=== PATIENT | female | born 1980 | race African-American/Black ===

== ENCOUNTER 2019-06-18 16:00 | Emergency (ER) | payer BC, SELFPAY ==
[2019-06-18 16:24] VITALS: BP 142/80; PULSE 101; RESP 18; TEMP 39.2; O2SAT 99
[2019-06-18] MEDS: SODIUM CHLORIDE 0.9% IV 1,000 ML 999 ML IV CONT ×2 (17:03→18:03)
--- NOTE | 2019-06-18 17:16 | ED.GENADULT ---
HPI - General Adult General Chief complaint: Upper Respiratory Infection Stated complaint: dizzy/jimenes/weak Time Seen by Provider: 06/18/19 16:14 Source: patient Mode of arrival: ambulatory Limitations: no limitations History of Present Illness HPI narrative: Patient is a 38-year-old female who presents complaining of generalized body aches, weakness, headache and fever. Patient reports symptoms starting yesterday. Reports increased today. She denies cough, sore throat, congestion, or shortness of breath. She reports taking ibuprofen yesterday with moderate relief. 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 MD complaint: Flulike symptoms Related Data Home Medications Medication Instructions Recorded Confirmed ferrous sulfate 142 mg (45 mg 142 mg PO DAILY 06/02/19 iron) tablet,extended release methimazole 5 mg tablet 5 mg PO DAILY 06/02/19 Allergies Allergy/AdvReac Type Severity Reaction Status Date / Time No Known Allergies Allergy Unverified 06/18/19 16:28 Review of Systems Review of Systems: Narrative: CONSTITUTIONAL: Reports fever, chills, and generalized body aches. EYES: Denies visual changes, redness, or discharge. ENT: Denies rhinorrhea, congestion, sore throat, or otalgia. CARDIOVASCULAR: Denies chest pain, palpitations, or edema. RESPIRATORY: Denies cough or dyspnea. GASTROINTESTINAL: Denies abdominal pain, nausea, vomiting, or diarrhea. GENITOURINARY: Denies dysuria or hematuria. SKIN: Denies rash or itching. MUSCULOSKELETAL: Denies back pain, joint pain, or myalgia. NEUROLOGIC: Reports headache, denies numbness, dizziness. PSYCHIATRIC: Denies anxiety or depression. FOR[facility]LY [facility] Past Medical History Medical History (Updated 06/18/19 @ 17:57 by JUAN DANIEL Salas) Hyperthyroidism Surgical History Surgical History No history of previous surgery Family History Family History Mother Family history of malignant neoplasm of breast in first degree relative, Onset Age: 49 Social History Social History Smoking status: Never smoker Second hand tobacco smoke exposure: No Alcohol intake: never Substance use: never Substance use type: does not use Gender identity (if verbalized by the patient): Female Exam Narrative: Exam Narrative: GENERAL: Ill-appearing but well-nourished and in no acute distress. HEAD: Normocephalic, atraumatic. EYES: EOMI. No redness or drainage. Conjunctiva are normal. ENT: Mucous membranes pink and moist. Nares clear. No rhinorrhea. TMs normal bilaterally. Throat normal. Uvula midline. NECK: AROM. Supple. No lymphadenopathy. CHEST: No respiratory distress. Clear to auscultation. HEART: Regular rate and rhythm. No murmur appreciated. Normal peripheral pulses. GI: Soft, nontender without rebound, or guarding. No distention. Bowel sounds normal in all quadrants. MUSCULOSKELETAL: No bony tenderness. EXTREMITIES: Normal range of motion. No edema. SKIN: Warm, dry, no rash. NEURO: No focal deficits. Alert and oriented x3. Gait steady. PSYCH: Normal affect. No signs of depression or anxiety. Course Reevaluation(s) Reevaluation #1: Patient continues to complain of headache at this time. IV medications and fluids to be continued. Will reassess patient after all medications are finished. Date: 06/18/19 Time: 17:52 Date: 06/18/19 Time: 18:55 Reevaluation #3: Patient reports she is feeling better at this time and is ready for discharge. Vital Signs Vital signs: Vital Signs Temperature 39.2 C H 06/18/19 16:24 Pulse Rate 101 H 06/18/19 16:24 Respiratory Rate 18 06/18/19 16:24 Blood Pressure 142/80 H 06/18/19 16:24 Pulse Oximetry 99 06/18/19 16:24 Temperature 39.2 C H 06/18/19 16:24 Pulse Rate 101 H 06/18/19 16:2
[2019-06-18] MEDS: METOCLOPRAMIDE HCL INJ 10 MG/2 ML VIAL IV PUSH (18:03)
[2019-06-18] MEDS: KETOROLAC 30 MG/ML VIAL (*BKC) IV PUSH (18:03)
[2019-06-18 18:04] VITALS: BP 144/90; PULSE 115; RESP 18; O2SAT 98
[2019-06-18 19:02] VITALS: BP 138/86; PULSE 78; RESP 16; O2SAT 98
--- NOTE | 2019-06-23 08:26 | PC.NURSE ---
LATE ENTRY This note is being entered to document information to the patient's record. The following information was omitted on [Farzaneh wolf], by [06/23/19]. NS stopped at 1903 on 06/18/19
== END 2019-06-18 19:03 | disposition home or self-care (01) ==
PROVIDERS: Emergency Provider Nurse Practitioner; PCP Family Medicine
DX: J10.1 Influenza due to other identified influenza virus with other respiratory manifestations (principal); E05.90 Thyrotoxicosis, unspecified without thyrotoxic crisis or storm
CPT/HCPCS: 87804; 96361; 96365; 96375; 99284; J0131; J1200; J1885; J2765; J7030

== ENCOUNTER 2019-11-11 09:34 | Emergency (ER) | payer BC, SELFPAY ==
[2019-11-11 09:38] VITALS: BP 135/94; PULSE 95; RESP 19; TEMP 36.8; O2SAT 100
--- NOTE | 2019-11-11 09:43 | PC.NURSE ---
Last night pt did take medication(methimazole), but was told by Dr. Mckenzie to only take that one dose.
--- NOTE | 2019-11-11 11:06 | ED.GENADULT ---
HPI - General Adult General Chief complaint: Recheck/Abnormal Lab/Rx <Je Mcdonnell PA-C - Last Filed: 11/11/19 11:56> Stated complaint: Thyroid issues <Je Mcdonnell PA-C - Last Filed: 11/11/19 11:56> Time Seen by Provider: 11/11/19 10:08 <Je Mcdonnell PA-C - Last Filed: 11/11/19 11:56> Source: patient <Je Mcdonnell PA-C - Last Filed: 11/11/19 11:56> Mode of arrival: ambulatory <Je Mcdonnell PA-C - Last Filed: 11/11/19 11:56> Limitations: no limitations <Je Mcdonnell PA-C - Last Filed: 11/11/19 11:56> History of Present Illness HPI narrative: Patient is a 39-year-old female who presents to emergency department for evaluation of feeling jittery after discontinuing her hyperthyroid medication. Patient has been attempting to get and was advised to discontinue taking her hyperthyroidism medicine became jittery over the last couple of days did take a dose last night but this morning continued to feel anxious. Patient presents in no distress. Patient's medication is managed by her primary care doctor. Patient denies illness or other complaints <Je Mcdonnell PA-C - Last Filed: 11/11/19 11:56> Related Data Allergies/adverse reactions: Allergies Allergy/AdvReac Type Severity Reaction Status Date / Time oseltamivir [From Tamiflu] AdvReac Severe angioedema Verified 11/11/19 09:41 <Je Mcdonnell PA-C - Last Filed: 11/11/19 11:56> Review of Systems Review of Systems: All systems reviewed & are unremarkable except as noted in HPI and below <Je Mcdonnell PA-C - Last Filed: 11/11/19 11:56> [facility] Past Medical History Medical History: Medical History Angioedema Chronic anemia Hyperthyroidism Vitamin D deficiency, unspecified <Je Mcdonnell PA-C - Last Filed: 11/11/19 11:56> Surgical History Surgical History: Surgical History No history of previous surgery <Je Mcdonnell PA-C - Last Filed: 11/11/19 11:56> Social History Social History: Social History Social History: Smoking status: Never smoker Second hand tobacco smoke exposure: No Alcohol intake: never Substance use: never Substance use type: does not use Gender identity (if verbalized by the patient): Female <Je Mcdonnell PA-C - Last Filed: 11/11/19 11:56> Exam Narrative: Exam Narrative: GENERAL: Well-appearing, well-nourished, and in no acute distress. HEAD: Normocephalic, atraumatic. EYES: PERRLA and EOMI. ENT: Nares clear, no rhinorrhea or epistaxis. Mucous membranes moist. Oropharynx without tonsillar hypertrophy exudate or other lesions. NECK: Supple. No adenopathy or masses. CHEST: Clear to auscultation. No respiratory distress. No wheezes rales or rhonchi HEART: Regular rate and rhythm. No murmur heard. EXTREMITIES: Normal range of motion. No edema. SKIN: Warm, dry, no rash. NEURO: No focal deficits. Alert and oriented x3. Cranial nerves II through XII grossly intact PSYCH: Normal mood and affect. <EDWIN Mendiola Last Filed: 11/11/19 11:56> Course Course Emergency Course: Patient in the room at this time aware of case findings treatment plan and diagnosis <Je Mcdonnell PA-C - Last Filed: 11/11/19 11:56> Vital Signs Vital signs: Vital Signs Temperature 98.3 F 11/11/19 09:38 Pulse Rate 95 11/11/19 09:38 Respiratory Rate 19 11/11/19 09:38 Blood Pressure 135/94 H 11/11/19 09:38 Pulse Oximetry 100 11/11/19 09:38 Temperature 98.3 F 11/11/19 09:38 Pulse Rate 90 11/11/19 12:05 Respiratory Rate 14 11/11/19 12:05 Blood Pressure 140/95 H 11/11/19 12:05 Pulse Oximetry 99 11/11/19 12:05 <Je Mcdonnell PA-C - Last Filed: 11/11/19 11:56> Vital Signs Temperatur
[2019-11-11 11:12] VITALS: BP 170/79; PULSE 70; RESP 22; O2SAT 96
--- NOTE | 2019-11-11 11:53 | PC.NURSE ---
EMIL Bell at bedside.
[2019-11-11 12:05] VITALS: BP 140/95; PULSE 90; RESP 14; O2SAT 99
== END 2019-11-11 12:06 | disposition home or self-care (01) ==
PROVIDERS: Emergency Medicine Emergency Medical Services; Emergency Provider Emergency Medicine; PCP Family Medicine
DX: F41.9 Anxiety disorder, unspecified (principal); E05.90 Thyrotoxicosis, unspecified without thyrotoxic crisis or storm
CPT/HCPCS: 36415; 84443; 99283

== ENCOUNTER 2020-02-03 03:27 | Emergency (ER) | payer BC, SELFPAY ==
[2020-02-03 03:31] VITALS: BP 142/90; PULSE 107; RESP 16; TEMP 37.2; O2SAT 100
--- NOTE | 2020-02-03 03:53 | ED.GENADULT ---
HPI - General Adult General Chief complaint: Unspecified Stated complaint: fluctuation in bp Time Seen by Provider: 02/03/20 03:38 History of Present Illness HPI narrative: She reports that she has been experiencing wide fluctuations in blood pressure. She has not had any symptoms associated with these. She is currently on multiple medications associated with upcoming in vitro fertility procedure. Related Data Allergies Allergy/AdvReac Type Severity Reaction Status Date / Time oseltamivir [From Tamiflu] AdvReac Severe angioedema Verified 11/11/19 09:41 Review of Systems Review of Systems: All systems reviewed & are unremarkable except as noted in HPI and below Constitutional: Constitutional: Denies chills, Denies fever(s) and Denies weakness Eyes: Eyes: Denies change in vision Cardiovascular: Cardiovascular: Denies chest pain Respiratory: Respiratory: Denies dyspnea Gastrointestinal: Gastrointestinal: Denies abdominal pain and Denies nausea Neurologic: Denies dizziness, Denies headache(s) and Denies weakness PMFSH Past Medical History Medical History Angioedema Chronic anemia Hyperthyroidism Vitamin D deficiency, unspecified Surgical History Surgical History No history of previous surgery Family History Family History Mother Family history of malignant neoplasm of breast in first degree relative, Onset Age: 49 Social History Social History Social History: Smoking status: Never smoker Second hand tobacco smoke exposure: No Alcohol intake: never Substance use: never Substance use type: does not use Gender identity (if verbalized by the patient): Female Exam Const: General: healthy appearing, no acute distress and alert Orientation/consciousness: patient oriented x3 HENMT: Head: normal to inspection Neck: Neck: normal visual inspection and no lymphadenopathy Resp: Effort & Inspection: normal respiratory effort Auscultation: clear to auscultation bilaterally, no rales, no rhonchi and no wheezes Cardio: Jugular venous distension: no JVD Rate: regular rate Rhythm: regular rhythm Heart sounds: no murmurs GI: Inspection: non-distended GI Palp: Yes Soft to palpation and No Tenderness to palpation present (GI) Skin: General skin exam: normal color Neuro: General: patient oriented x3, moves all extremities, no focal motor deficits and CN's II-XI intact bilaterally Speech: normal speech Gait exam (Neuro): Normal gait present Extrem: General: no edema Psych: Appearance: well kempt Affect: normal affect Course Vital Signs Vital signs: Vital Signs Temperature 37.2 C 02/03/20 03:31 Pulse Rate 107 H 02/03/20 03:31 Respiratory Rate 16 02/03/20 03:31 Blood Pressure 142/90 H 02/03/20 03:31 Pulse Oximetry 02/03/20 03:31 Temperature 37.2 C 02/03/20 03:31 Pulse Rate 102 H 02/03/20 03:56 Respiratory Rate 18 02/03/20 03:56 Blood Pressure 124/84 02/03/20 03:56 Pulse Oximetry 02/03/20 03:56 Medical Decision Making MDM Narrative Medical decision making narrative: BP not at concerning level. Likely related to in vitro meds Vital Signs Vital Signs: Vital Signs Temperature 37.2 C 02/03/20 03:31 Pulse Rate 107 H 02/03/20 03:31 Respiratory Rate 16 02/03/20 03:31 Blood Pressure 142/90 H 02/03/20 03:31 Pulse Oximetry 100 02/03/20 03:31 Temperature 37.2 C 02/03/20 03:31 Pulse Rate 102 H 02/03/20 03:56 Respiratory Rate 18 02/03/20 03:56 Blood Pressure 124/84 02/03/20 03:56 Pulse Oximetry 02/03/20 03:56 Discharge Plan Discharge Clinical Impression: Labile blood pressure Patient Disposition: Home, Self-Care Condition: Stable Instructions: Hypertension (ED)
[2020-02-03 03:56] VITALS: BP 124/84; PULSE 102; RESP 18; O2SAT 100
== END 2020-02-03 04:25 | disposition home or self-care (01) ==
PROVIDERS: Emergency Provider Emergency Medicine; PCP Family Medicine
DX: R09.89 Other specified symptoms and signs involving the circulatory and respiratory systems (principal); D64.9 Anemia, unspecified; E05.90 Thyrotoxicosis, unspecified without thyrotoxic crisis or storm; E55.9 Vitamin D deficiency, unspecified
CPT/HCPCS: 99281

== ENCOUNTER 2020-10-18 09:32 | Outpatient (RCR) | payer BC, SELFPAY ==
[2020-09-23 18:11] VITALS: BP 130/78; PULSE 83
[2020-10-18 10:20] VITALS: BP 119/70; PULSE 108
== END 2020-10-22 08:25 | disposition home or self-care (01) ==
LOC: ANHOBOP 09:32
PROVIDERS: PCP Family Medicine; Visit Provider Obstetrics & Gynecology
DX: O36.8330 Maternal care for abnormalities of the fetal heart rate or rhythm, third trimester, not applicable or unspecified (principal); Z3A.36 36 weeks gestation of pregnancy; O24.419 Gestational diabetes mellitus in pregnancy, unspecified control; Z3A.39 39 weeks gestation of pregnancy
CPT/HCPCS: 59025

== ENCOUNTER 2020-10-21 06:02 | Inpatient (IN) | payer BC, SELFPAY ==
[2020-10-21] VITALS (108 sets, daily range): BP systolic 110–140; BP diastolic 61–105; PULSE 64–165; RESP 16–18; TEMP 35.9–36.7; O2SAT 96–100; BMI 28.7
--- NOTE | 2020-10-21 06:02 | LDADM ---
This patient, Vilma Cuenca, was admitted to Labor/Delivery/Recovery 109 on 10/21/20 at 06:02. Plans for labor, pain management and were discussed with patient. Patient/family oriented to hospital policies and general routines including ID bracelet, bed and alarms, visiting hours, pain management, procedures, bathroom and other care routines, personal items, smoking policy, room service/diet and guest tray routines, infant security routines, and visiting hours. Patient/Family are encouraged to report perceived risks to care and to ask questions if they do not understand what they are told or what they should do. See OBIX for further documentation.
--- OUTSIDE RECORDS SUMMARY | 2020-10-21 06:10 | XMS_ITS | Encounter Summary ---
:1980 Author Reason for Visit None recorded. Assessment and Plan 1. Gestational diabetes mellitus , class A>1< ? non-stress test 2. Gestational diabetes mellitus ? US, obstetric, follow-up Discussion Note: None recorded.Patient educational handouts: No information available. Plan of Care Reminders Provider Appointments 3Hr on or around [facility]UR[facility] camp RN Glucose 12/02/2020 Lab None ? ? recorded. Referral None ? ? recorded. Procedures None ? ? recorded. Surgeries None ? ? recorded. Imaging Non-stress 09/27/2020 [place] ? US, 09/27/2020 [facility], Follow-up Medications Name Start Date ? ? Contour Next Meter ? TEST FOUR TIMES DAILY DIRECTED Contour Next Test Strips ? folic acid 1 mg tablet ? TAKE 1 TABLET BY MOUTH EVERY DAY methimazole 5 mg tablet ? Microlet Lancet ? Vitamin 27 mg iron-0.8 mg tablet ? TAKE 1 TABLET BY MOUTH DAILY Medications Administered None recorded. Vitals None recorded. Results Lab Results None recorded. Allergies Code Code System Name Reaction Severity Onset
--- OUTSIDE RECORDS SUMMARY | 2020-10-21 06:10 | XMS_ITS | Encounter Summary ---
:1980 Author Reason for Visit None recorded. Assessment and Plan 1. Gestational diabetes mellitus , class A>1< ? non-stress test Discussion Note: None recorded.Patient educational handouts: No information available. Plan of Care Reminders Provider Appointments 3Hr on or around LAUR[facility] camp RN Glucose 12/02/2020 Lab None ? ? recorded. Referral None ? ? recorded. Procedures None ? ? recorded. Surgeries None ? ? recorded. Imaging Non-stress 10/07/2020 [facility] Medications Name Start Date ? ? Contour Next Meter ? TEST FOUR TIMES DAILY DIRECTED Contour Next Test Strips ? folic acid 1 mg tablet ? TAKE 1 TABLET BY MOUTH EVERY DAY methimazole 5 mg tablet ? Microlet Lancet ? Vitamin 27 mg iron-0.8 mg tablet ? TAKE 1 TABLET BY MOUTH DAILY Medications Administered None recorded. Vitals Blood Pressure 120/77 mm[Hg] Results Lab Results None recorded. Allergies Code Code System Name Reaction Severity Onset NKDA ? ? ? Problems Name Status Onset Date Source ?
--- OUTSIDE RECORDS SUMMARY | 2020-10-21 06:10 | XMS_ITS | Encounter Summary ---
[...] Surgeries None ? ? recorded. Imaging Non-stress 09/23/2020 [facility] Medications Name Start Date [...] Problems Name Status Onset Date Source ? Active 08/02/2020 ?
--- OUTSIDE RECORDS SUMMARY | 2020-10-21 06:10 | XMS_ITS | Encounter Summary ---
:1980 Author Reason for Visit OB visit Assessment and Plan 1. Hyperthyroidism in ? TSH, serum or plasma 2. Gestational diabetes mellitus , class A>1< Discussion Note: None recorded.Patient educational handouts: No information available. Plan of Care Reminders Provider Appointments 3Hr on or around [facility]UR[facility] camp RN Glucose 12/02/2020 Lab TSH, Serum 09/20/2020 [facility] (Lab) Referral None ? ? recorded. Procedures None ? ? recorded. Surgeries None ? ? recorded. Imaging None ? ? recorded. Medications Name Start Date ? ? Contour Next Meter ? TEST FOUR TIMES DAILY DIRECTED Contour Next Test Strips ? folic acid 1 mg tablet ? TAKE 1 TABLET BY MOUTH EVERY DAY methimazole 5 mg tablet ? Microlet Lancet ? Vitamin 27 mg iron-0.8 mg tablet ? TAKE 1 TABLET BY MOUTH DAILY Medications Administered None recorded. Vitals Height Weight BMI Blood Pressure 5 ft 9 in 207 lbs 30.6 kg/m2 127/82 mm[Hg] Results Lab Results Date Name Specimen Result Interpretation Description Value Range Status Address ? 09/20/2020 TSH, Serum ? Tsh 1.31 0.30-5.00 Final
--- OUTSIDE RECORDS SUMMARY | 2020-10-21 06:10 | XMS_ITS | Encounter Summary ---
[...] Surgeries None ? ? recorded. Imaging Non-stress 10/14/2020 [facility] Medications Name Start Date [...] Medications Administered None recorded. Vitals Blood Pressure 142/80 mm[Hg] Results Lab Results None recorded. Allergies Code Code System Name Reaction Severity Onset NKDA ? ? ? Problems Name Status Onset Date Source ?
--- OUTSIDE RECORDS SUMMARY | 2020-10-21 06:10 | XMS_ITS | Encounter Summary ---
[...] Surgeries None ? ? recorded. Imaging Non-stress 10/11/2020 [facility] Medications Name Start Date [...]
--- OUTSIDE RECORDS SUMMARY | 2020-10-21 06:10 | XMS_ITS | Encounter Summary ---
[...] None ? ? recorded. Imaging Non-stress 09/27/2020 [facility] Medications Name Start Date [...]
--- OUTSIDE RECORDS SUMMARY | 2020-10-21 06:10 | XMS_ITS | Encounter Summary ---
:1980 Author Reason for Visit OB visit Assessment and Plan 1. Multigravida of advanced mate rnal age 2. Gestational diabetes mellitus , class A>1< [...] ft 9 in 207 lbs 30.6 kg/m2 144/86 mm[Hg] Results Lab Results None recorded. Allergies Code Code System Name Reaction Severity Onset NKDA ? ? ? Problems Name Status Onset Date Source ?
--- OUTSIDE RECORDS SUMMARY | 2020-10-21 06:10 | XMS_ITS ---
:1980 Author Care Team Providers Name Role Phone Irina Cortez Primary Care Provider Unavailable Allergies Code Code System Name Reaction Severity Status Onset NKDA ? Medications Name Status Start Date Stop Date ? ? Alcohol Prep Pads Completed ? 04/12/2020 USE DIRECTED alprazolam 0.25 mg tablet Completed ? 2019 TK 1 T PO BID PRA amoxicillin 500 mg capsule Completed ? 03/22 TK ONE C PO Q 8 H TAT azelastine 137 mcg (0.1 %) nasal Completed ? 04/12/2020 spray aerosol BD Luer-Mckayla Syringe 3 mL 18 x 1 1/2 Completed ? 04/12/2020 USE UTD TO DRAW UP THE PROGESTERONE BD Regular Bevel [place] 22 gauge x 1 1/ Completed ? 04/12/2020 USE UTD TO INJECT PROGESTERONE chlorhexidine gluconate 0.12 % Completed ? 1 06/12/2019 mouthwash clomiphene citrate 50 mg tablet Completed 01/27/2016 01/31/2016 take 1 Tablet by oral route every day for 5 days days 5-9 of c ycle compound drug Completed ? 04/12/2020 INSERT 1 SUPPOSITORY VAGINALLY D IN THE EVENING Contour Next Meter Active ? Not available TEST FOUR TIMES DAILY DIRECTED Contour Next Test Strips Active ? Not fifi ilable dexamethasone 0.75 mg tablet Completed ? TK 1 T PO D dexamethasone 6 mg tablet Completed 12/18/20162016 take by oral route every day Estrace 0.01% (0.1 mg/gram) vaginal cream Completed ? 12/25/2017
--- OUTSIDE RECORDS SUMMARY | 2020-10-21 06:10 | XMS_ITS | Encounter Summary ---
:1980 Author Reason for Visit OB visit [id number] Assessment and Plan 1. Routine care Discussion Note: None recorded.Patient educational handouts: No [...] BMI Blood Pressure 5 ft 9 in 205 lbs 30.3 kg/m2 118/80 mm[Hg] Results Lab Results None recorded. Allergies Code Code System Name Reaction Severity Onset NKDA ? ? ? Problems Name Status Onset Date Source ?
--- OUTSIDE RECORDS SUMMARY | 2020-10-21 06:10 | XMS_ITS | Encounter Summary ---
[...] BMI Blood Pressure 5 ft 9 in 208 lbs 30.7 kg/m2 127/79 mm[Hg] Results Lab Results None recorded. Allergies Code Code System Name Reaction Severity Onset NKDA ? ? ? Problems Name Status Onset Date Source ?
--- OUTSIDE RECORDS SUMMARY | 2020-10-21 06:10 | XMS_ITS | Encounter Summary ---
:1980 Author Reason for Visit None recorded. Assessment and Plan 1. condition affecting obs tetrical care of mother ? US, obstetric, biophysical profile Discussion Note: None recorded.Patient educational handouts: No information available. Plan of Care Reminders Provider Appointments 3Hr Glucose on or around R N Schedule, RN 12/02/2020 Lab None ? ? recorded. Referral None ? ? recorded. Procedures None ? ? recorded. Surgeries None ? ? recorded. Imaging US, 10/07/2020 [facility], Biophysical Profile Medications Name Start Date ? ? Contour [...]
--- OUTSIDE RECORDS SUMMARY | 2020-10-21 06:10 | XMS_ITS | Encounter Summary ---
[...] Surgeries None ? ? recorded. Imaging Non-stress 09/30/2020 [facility] Medications Name Start Date [...]
--- OUTSIDE RECORDS SUMMARY | 2020-10-21 06:10 | XMS_ITS | Encounter Summary ---
:1980 Author Reason for Visit OB visit Assessment and Plan Assessment Note Patient is ___weeks . Discu ssed plan. 1. Gestational diabetes mellitus , class A>1< 2. Multigravida of advanced mate rnal age Discussion Note: None recorded.Patient educational handouts: No [...] BMI Blood Pressure 5 ft 9 in 210 lbs 31 kg/m2 127/77 mm[Hg] Results Lab Results None recorded. Allergies Code Code System Name Reaction Severity Onset
--- OUTSIDE RECORDS SUMMARY | 2020-10-21 06:10 | XMS_ITS | Encounter Summary ---
[...] Surgeries None ? ? recorded. Imaging Non-stress 10/04/2020 [facility] Medications Name Start Date [...]
--- OUTSIDE RECORDS SUMMARY | 2020-10-21 06:11 | XMS_ITS | Encounter Summary ---
[...] Surgeries None ? ? recorded. Imaging Non-stress 08/30/2020 [facility] Medications Name Start Date [...]
--- OUTSIDE RECORDS SUMMARY | 2020-10-21 06:11 | XMS_ITS | Encounter Summary ---
[...] Surgeries None ? ? recorded. Imaging Non-stress 09/13/2020 [facility] Medications Name Start Date [...]
--- OUTSIDE RECORDS SUMMARY | 2020-10-21 06:11 | XMS_ITS | Encounter Summary ---
:1980 Author Reason for Visit None recorded. Assessment and Plan 1. Gestational diabetes mellitus ? US, obstetric, follow-up ? US, obstetric, biophysical profile + non-stress test Discussion Note: None recorded.Patient educational handouts: No information available. Plan of Care Reminders Provider Appointments 3Hr Glucose on or around R N Schedule, RN 12/02/2020 Lab None ? ? recorded. Referral None ? ? recorded. Procedures None ? ? recorded. Surgeries None ? ? recorded. Imaging US, 08/30/2020 [facility], Follow-up ? , 08/30/2020 [facility], Biophysical Profile + Non-stress Test Medications Name Start Date ? ? [...] recorded. Results Lab Results None recorded. Allergies C
--- OUTSIDE RECORDS SUMMARY | 2020-10-21 06:11 | XMS_ITS | Encounter Summary ---
:1980 Author Reason for Visit OB visit Assessment and Plan 1. Gestational diabetes mellitus , class A>1< 2. Routine care 3. Advanced maternal age Discussion Note: None recorded.Patient educational handouts: [...] BMI Blood Pressure 5 ft 9 in 203 lbs 30 kg/m2 120/80 mm[Hg] Results Lab Results None recorded. Allergies Code Code System Name Reaction Severity Onset NKDA ? ? ? Problems
--- OUTSIDE RECORDS SUMMARY | 2020-10-21 06:11 | XMS_ITS | Encounter Summary ---
[...] Surgeries None ? ? recorded. Imaging Non-stress 09/20/2020 [facility] Medications Name Start Date [...]
--- OUTSIDE RECORDS SUMMARY | 2020-10-21 06:11 | XMS_ITS | Encounter Summary ---
:1980 Author Reason for Visit None recorded. Assessment and Plan 1. Gestational diabetes mellitus , class A>1< Pt here for diet teaching. Zaira t over ideal ranges for FBS and pp BS. Went over carb counting and carb ranges for e ach meal/snack. Gave ideas for foods to eat for meals/snacks. Discussed drink option s and to avoid soda and juice. Told pt she can go online to [employer] for meal options or to look up low carb meal recipes online for ideas as well. Pt picked up glucometer l ast night and brought in today to see how it works. Went over glucometer, test strips , and lancets with pt. Showed pt how to load lancet, place test strip in glucometer, and pt took her own glucose reading in office for the first time. Told pt to continue checking BS QID and adjusting diet to follow low carb diet to try to keep BS within n ormal range. Pt aware if sugars aren't controlled by diet we would discuss star ting insulin. Went over NST schedule with pt and importance of keeping these appts an d checking BS for her and baby's health. Pt has very good support at home and pts teodoro nancy went out and bought fish, chicken, and veggies to help patient meal prep. Pt st ates they make a lot of meals at home. Brought in a container of whipped cream cheese so we had a sample nutrition label to look at, per pts request, so pt knew how to find total carbs on label so she can start counting these at home too. Pt see ms receptive to diet teaching and changes for her and baby's health. Pts questions wer e answered and pt verbalized understanding. LAUREN sandoval Discussion Note: None recorded.Patient educational handouts: No information available. Plan of Care Reminders Provider Appointments 3Hr on or around [facility]UR[facility] camp RN Glucose 12/02/2020
--- OUTSIDE RECORDS SUMMARY | 2020-10-21 06:11 | XMS_ITS | Encounter Summary ---
[...] ft 9 in 205 lbs 30.3 kg/m2 123/76 mm[Hg] Results Lab Results None recorded. Allergies Code Code System Name Reaction Severity Onset NKDA ? ? ? Problems Name Status Onset Date Source ?
--- OUTSIDE RECORDS SUMMARY | 2020-10-21 06:11 | XMS_ITS | Encounter Summary ---
[...] Surgeries None ? ? recorded. Imaging Non-stress 08/26/2020 [facility] Test Medications Name Start Date [...]
--- OUTSIDE RECORDS SUMMARY | 2020-10-21 06:11 | XMS_ITS | Encounter Summary ---
[...] Surgeries None ? ? recorded. Imaging Non-stress 09/06/2020 [facility]se Test Medications Name Start Date ? ? [...]
--- OUTSIDE RECORDS SUMMARY | 2020-10-21 06:11 | XMS_ITS | Encounter Summary ---
[...] Surgeries None ? ? recorded. Imaging Non-stress 09/16/2020 Liz[facility] bates Test Medications Name Start Date [...]
--- OUTSIDE RECORDS SUMMARY | 2020-10-21 06:11 | XMS_ITS | Encounter Summary ---
[...] Surgeries None ? ? recorded. Imaging Non-stress 09/09/2020 [facility] bates Test Medications Name Start Date [...]
--- OUTSIDE RECORDS SUMMARY | 2020-10-21 06:11 | XMS_ITS | Encounter Summary ---
:1980 Author Reason for Visit None recorded. Assessment and Plan 1. Abnormal heart rate ? US, obstetric, biophysical profile + non-stress test Discussion Note: None recorded.Patient educational handouts: No information available. Plan of Care Reminders Provider Appointments 3Hr Glucose on or around R N Schedule, RN 12/02/2020 Lab None ? ? recorded. Referral None ? ? recorded. Procedures None ? ? recorded. Surgeries None ? ? recorded. Imaging US, 08/26/2020 [facility], Biophysical Profile + Non-stress Test Medications [...]
--- OUTSIDE RECORDS SUMMARY | 2020-10-21 06:11 | XMS_ITS | Encounter Summary ---
[...] ft 9 in 205 lbs 30.3 kg/m2 126/82 mm[Hg] Results Lab Results None recorded. Allergies Code Code System Name Reaction Severity Onset NKDA ? ? ? Problems Name Status Onset Date Source ?
--- OUTSIDE RECORDS SUMMARY | 2020-10-21 06:11 | XMS_ITS | Encounter Summary ---
:1980 Author Reason for Visit OB visit Assessment and Plan 1. Gestational diabetes mellitus , class A>1< 2. Advanced maternal age Discussion Note: None recorded.Patient [...] BMI Blood Pressure 5 ft 9 in 206 lbs 30.4 kg/m2 124/80 mm[Hg] Results Lab Results None recorded. Allergies Code Code System Name Reaction Severity Onset NKDA ? ? ? Problems Name Status Onset Date Source ?
--- OUTSIDE RECORDS SUMMARY | 2020-10-21 06:11 | XMS_ITS | Encounter Summary ---
[...] Surgeries None ? ? recorded. Imaging Non-stress 09/02/2020 [facility] Test Medications Name Start Date [...]
--- OUTSIDE RECORDS SUMMARY | 2020-10-21 06:12 | XMS_ITS | Encounter Summary ---
:1980 Author Reason for Visit OB visit 28w5d Assessment and Plan 1. Routine care 2. -induced hypertensio n ? CBC w/ auto diff ? CMP, serum or plasma ? uric acid, serum or plasma Discussion Note: None recorded.Patient educational handouts: No information available. Plan of Care Reminders Provider Appointments 3Hr on or around [place]UR[place] camp RN Glucose 12/02/2020 Lab CBC W/ 2020 [facility] (Lab) ? CMP, Serum [facility] (Lab) ? Uric Acid, 2020 [facility] (Lab) Referral None ? ? recorded. Procedures None ? ? recorded. Surgeries None ? ? recorded. Imaging None ? ? recorded. Medications Name Start Date ? ? Contour Next Meter ? TEST FOUR TIMES DAILY DIRECTED Contour Next Test Strips ? folic acid 1 mg tablet ? TAKE 1 TABLET BY MOUTH EVERY DAY methimazole 5 mg tablet ? Microlet Lancet ? P
[2020-10-21] MEDS: LACTATED RINGERS 1,000 ML 125 ML IV CONT ×2 (06:53→09:19)
[2020-10-21] MEDS: OXYTOCIN 30 UNITS/NS 500 ML 30 UNITS/500 ML BAG IV CONT (06:54)
[2020-10-21 06:56] LABS: Basophils Percent Auto 0.2 % (0.2-1.2); Eosinophils Percent Auto 0.2 % (0-4.4); Hematocrit 37.1 % (37.0-47.0); Hemoglobin 11.9 g/dL (12.0-15.0); Immature Granulocyte Absolute 0.03 K/mm3 (0.00-0.031); Immature Granulocyte Percent A 0.7 % (0-0.5); Lymphocytes Absolute Auto 0.93 K/mm3 (0.9-3.2); Lymphocytes Percent Auto 22.7 % (18.3-44.2); Mean Corpuscular HGB Conc 32.1 g/dl (32-36); Mean Corpuscular Hemoglobin 27.5 pg (26-34); Mean Corpuscular Volume 85.7 fl (80-100); Mean Platelet Volume 9.4 fl (7.4-10.4); Monocytes Absolute Auto 0.4 K/mm3 (0.1-0.6); Neutrophils Absolute Auto 2.7 K/mm3 (1.3-6.7); Neutrophils Percent Auto 66.2 % (45.5-73.1); Platelet Count Result 251 k/mm3 (150-375); Red Blood Count 4.33 M/mm3 (4.2-5.4); Red Cell Distribution Width 14.2 % (11.5-14.5); White Blood Count 4.1 K/mm3 (4.5-10.0)
--- NOTE | 2020-10-21 07:21 | WPDANESEPP ---
Anes - Eval Pre Procedure Procedure: labor epidural Date/Time: 10/21/20 07:21 Surgeon: brody Pre Op Diagnosis: ind Patient Data Age: 40 Gender: F Height: 1.8 m Weight: 93.5 kg Last Vital Signs Pulse 94 10/21/20 07:15 BP 117/70 10/21/20 07:15 Allergies Allergy/AdvReac Type Severity Reaction Status Date / Time oseltamivir [From Tamiflu] AdvReac Severe angioedema Verified 04/12/20 14:18 Home Medications Medication Instructions Recorded Confirmed Type prenat.vits,agustin,wpj-hbeg-erpyt 1 tablet PO DAILY 04/12/20 04/12/20 History Laboratory Tests 10/21/20 10/21/20 06:46 06:46 WBC 4.1 K/mm3 L K/mm3 (4.5-10.0) RBC 4.33 M/mm3 M/mm3 (4.2-5.4) Hgb 11.9 g/dL L g/dL (12.0-15.0) Hct 37.1 % % (37.0-47.0) MCV 85.7 fl fl (80-100) MCH 27.5 pg pg (26-34) MCHC 32.1 g/dl g/dl (32-36) RDW 14.2 % % (11.5-14.5) Plt Count 251 k/mm3 k/mm3 (150-375) MPV 9.4 fl fl (7.4-10.4) Immature Gran % (Auto) 0.7 % H % (0-0.5) Neut % (Auto) 66.2 % % (45.5-73.1) Lymph % (Auto) 22.7 % % (18.3-44.2) [place] % (Auto) 10.0 % H % (2.6-8.5) Eos % (Auto) 0.2 % % (0-4.4) Baso % (Auto) 0.2 % % (0.2-1.2) Lymph # (Auto) 0.93 K/mm3 K/mm3 (0.9-3.2) [place] # (Auto) 0.4 K/mm3 K/mm3 (0.1-0.6) Eos # (Auto) 0.0 K/mm3 K/mm3 (0-0.3) Baso # (Auto) 0.0 K/mm3 K/mm3 (0.0-0.1) Abs Immat Gran (auto) 0.03 K/mm3 K/mm3 (0.00-0.031) Absolute Neuts (auto) 2.7 K/mm3 K/mm3 (1.3-6.7) Absolute Nucleated RBC 0.0 K/mm3 K/mm3 (0.0-0.012) Nucleated RBC % 0.0 % % (0.0-0.2) RPR Pending Patient hx anesthesia problems: none Family hx anesthesia problems: none COUNTS INCLUDE 234 BEDS AT THE [facility] Past Medical History Medical History (Updated 04/12/20 @ 22:11 by Magaly Lynn MD) Angioedema Chronic anemia Hyperthyroidism Vitamin D deficiency, unspecified Surgical History Surgical History No history of previous surgery Family History Family History Mother Family history of malignant neoplasm of breast in first degree relative, Onset Age: 49 Social History Social History (Updated 04/12/20 @ 14:21 by Cinthya Marcus) Social History: Smoking status: Never smoker Second hand tobacco smoke exposure: No Alcohol intake: never Substance use: never Substance use type: does not use Gender identity (if verbalized by the patient): Female Spiritual care concerns: No Exam Day of Procedure 10/21/20 07:21
--- NOTE | 2020-10-21 07:56 | WPDOBADMIT ---
Obstetrics - Admit Note Admission Note: 40 y/o @ 40 weeks here for induction of labor. Cervix 4/60/-3 Arom s,all amount of clear odorless fluid. Anticipate . record reviewed. No pertinent additions to the history and/or any subsequent changes in the physical findings that are not consistent with the expected course of the were found. Additions to the history and/or subsequent changes in the physical findings follow. None.
[2020-10-21 11:19] LABS: Glucose Point of Care 134 mg/dl (65-105)
[2020-10-21 11:19] LABS: Glucose Point of Care 55 mg/dl (65-105)
[2020-10-21 13:24] LABS: Glucose Point of Care 52 mg/dl (65-105)
--- NOTE | 2020-10-21 14:07 | PM.OBPRVD ---
OB - Delivery Note Procedure Delivery date: 10/21/20 Procedure: events: Gestational Diabetes Intrapartal events: None Induction method: per pitocin protocol Delivery monitor: external FHT and external uterine Route of delivery: Episiotomy description: None Laceration Description: Perineal - 2nd Degree Delivery repair: vicryl Quantitative Blood Loss (ml): 495 Anesthesia type: None Narrative: Delivery per Z. Due SNM. Cord gasses collected and handed off to staff. Mother and baby in stable condition. Equality Baby Date of : 10/21/20 Weeks of gestation at delivery: 40 Infant gender: Female Weight (pounds): 7 Weight (ounces): 10 presentation: vertex position: Left Occiput Anterior (with hand presenting) score one minute: 9 score five minutes: 9
[2020-10-21] MEDS: OXYTOCIN 30 UNITS/NS 500 ML 30 UNITS/500 ML BAG 125 UNITS IV CONT (14:25)
[2020-10-21] MEDS: WITCH HAZEL 40 PADS 1 PAD TOPICAL (16:05)
[2020-10-21] MEDS: BENZOCAINE 20% AER SPR (*SP) 56 GM CAN 1 SPRAY TOPICAL (16:05)
--- NOTE | 2020-10-21 16:28 | PC.NURSE ---
Patient transferred to post room #283 per wheelchair. Support person present. Oriented to unit, room, information board, rooming in, admission packet and security measures. Patient verbalizes understanding.
[2020-10-22 03:00] VITALS: BP 118/65; PULSE 81; RESP 16; TEMP 36.8
[2020-10-22 03:10] LABS: Hematocrit 31.7 % (37.0-47.0); Hemoglobin 10.1 g/dL (12.0-15.0)
--- NOTE | 2020-10-22 07:43 | P.PNOB_ITS ---
OB - PN: Subj Subjective Date/time seen: 10/22/20 07:43 Patient comments: no complaints and pain well controlled baby status: doing well [place] feeding status: exclusively breast feeding OB - PN: Obj Data Labs CBC & Chem 7: 10/22/20 02:59 Labs: Laboratory Results - last 24 hr 10/21/20 10/21/20 10/21/20 06:46 06:58 11:16 Hgb Hct POC Capillary Glucose 134 H 55 L* Blood Type B Positive Antibody Screen Negative 10/21/20 10/22/20 13:17 02:59 Hgb 10.1 L Hct 31.7 L POC Capillary Glucose 52 L* Blood Type Antibody Screen OB - PN A/P Plan day: 1 Plan: routine care Comments: Home tomorrow. Time Spent With Patient Time: Total time spent is greater than 50% in coordination of care (as documented) at patient's floor/unit and/or counseling patient: Time with patient: less than 15 minutes Exam Narrative: Exam Narrative: NAD abdomen soft, nontender, fundus firm below the umbilicus Extremities nontender, 1+ edema
[2020-10-22] MEDS: MULTIVIT/MIN/PREN/FOL AC/IRON TABLET 1 TAB PO (07:45)
[2020-10-22] MEDS: DOCUSATE SODIUM 100 MG CAPSULE PO (07:46)
[2020-10-22 08:03] LABS: Rapid Plasma Reagin Non-Reactive (NonReactive)
[2020-10-22 08:10] VITALS: BP 115/70; PULSE 95; RESP 16; TEMP 36.6; O2SAT 99
--- NOTE | 2020-10-22 10:25 | WPDANLDPN2 ---
Anes-Prog Note L&D Date/Time: 10/22/20 10:25 Comfortable throughout: labor and delivery Neuraxial method: epidural Epidural/Spinal procedure site: clean & non-tender Neuro status: Neuro function grossly intact. Cardiovascular status: normal Respiratory status: normal Airway patency: baseline Mental status: baseline Post-Op hydration status: normal Vital Signs: Last Vital Signs Temp 36.6 C 10/22/20 08:10 Pulse 95 10/22/20 08:10 Resp 16 10/22/20 08:10 BP 115/70 10/22/20 08:10 Pulse Ox 99 10/22/20 08:10 Pain score (VAS): 05/30 I/O: Intake & Output 10/21/20 10/22/20 10/22/20 23:59 07:59 15:59 Output Total 85 Balance -85 Post-procedural complaints: none Patient feedback: Patient satisfied with anesthetic care.
[2020-10-22 12:04] VITALS: BP 116/68; PULSE 98; RESP 16; TEMP 36.9; O2SAT 100
[2020-10-22 20:00] VITALS: BP 130/75; PULSE 90; RESP 16; TEMP 36.3; O2SAT 100
--- NOTE | 2020-10-22 20:00 | PC.NURSE ---
Patient viewed the discharge video Mother & Baby Care, The First Two Weeks online. Patient was given the opportunity and encouraged to ask questions. Patient verbalized understanding of information shared and has been given the mother/baby guide for home reference.
[2020-10-23 07:30] VITALS: BP 126/84; PULSE 91; RESP 18; TEMP 36.7
--- NOTE | 2020-10-23 10:02 | PM.OBPNVD ---
OB - PN: Subj Subjective Date/time seen: 10/23/20 10:02 Patient comments: no complaints, pain well controlled and tolerating diet OB - PN: Obj Data Labs CBC & Chem 7: 10/22/20 02:59 OB - PN A/P Plan day: 2 Plan: routine care and discharge home Time Spent With Patient Time: Total time spent is greater than 50% in coordination of care (as documented) at patient's floor/unit and/or counseling patient: Exam Const: General: comfortable and no acute distress Resp: Effort & Inspection: normal respiratory effort Auscultation: no rales, no rhonchi and no wheezes Cardio: Rate: regular rate Heart sounds: no click, no murmurs and no rubs GI: GI Palp: Yes Soft to palpation and No Tenderness to palpation present (GI) Auscultation: normal bowel sounds Extrem: General: normal to inspection, no pedal edema and no calf tenderness
--- NOTE | 2020-10-23 10:03 | PM.OBDSVD ---
DS: Admitting Diagnosis Admitting Diagnosis Admitting Diagnosis: term DS: Discharge Diagnosis Discharge Diagnosis (1) Term delivered: Code(s): O80 - Encounter for full-term uncomplicated delivery Status: Acute OB - DS: Summary OB Procedures : None OB Procedures Intrapartum: Spontaneous Vag Delivery OB Procedures: : None Time Spent with Patient Time attestation: Total time spent providing and/or coordinating discharge services: DS: Data Data Completed and Pending Pending studies at discharge: Pending at discharge 10/21/20 13:52 Surgical [PTH] Routine Discharge Plan Discharge Discharging Clinician: Travis Proctor Patient Disposition: Home, Self-Care Activity: pelvic rest Diet: regular Patient Instructions: Antibiotic Form Stand Alone Forms: General Discharge Information Follow-up/Referrals: Travis Proctor MD [Physician] - Discharge Medications: Continued prenat.vits,agustin,tac-gnjk-pazto Tablet 1 tablet PO DAILY RF: 0 Date of admission: 10/21/20 06:02 Primary Care Provider: Magaly Lynn Admitting Provider: Irina Cortez Attending physician on admission: Irina Cortez Condition: Stable
[2020-10-25 10:55] VITALS: BP 124/80; PULSE 78; RESP 20; TEMP 36.8; O2SAT 100
== END 2020-10-23 12:04 | disposition home or self-care (01) | DRG 807 ==
LOC: ANHOB2 10-23 10:23 → ANHLDR 10-25 11:09 → ANHOB2 10-25 11:09
PROVIDERS: Advanced Practice Midwife; Obstetrics & Gynecology; Admitting Provider Obstetrics & Gynecology; PCP Family Medicine; Visit Provider Obstetrics & Gynecology
DX: O24.429 Gestational diabetes mellitus in childbirth, unspecified control (principal); Z37.0 Single live birth; O70.1 Second degree perineal laceration during delivery; O76 Abnormality in fetal heart rate and rhythm complicating labor and delivery; Z3A.40 40 weeks gestation of pregnancy
CPT/HCPCS: 36415; 82948; 85014; 85018; 85025; 86592; 86850; 86900; 86901; 88307; A9270; J2590; J2795; J7120

== ENCOUNTER 2020-11-19 12:26 | Outpatient (CLI) | payer BC, SELFPAY ==
[2020-11-19 13:15] VITALS: BP 135/81; PULSE 74
[2020-11-19 13:16] VITALS: BP 132/86; PULSE 75
[2020-11-19 13:24] LABS: Basophils Percent Auto 0.8 % (0.2-1.2); Eosinophils Absolute Auto 0.1 K/mm3 (0-0.3); Eosinophils Percent Auto 1.1 % (0-4.4); Hematocrit 37.6 % (37.0-47.0); Hemoglobin 11.7 g/dL (12.0-15.0); Immature Granulocyte Absolute 0.02 K/mm3 (0.00-0.031); Immature Granulocyte Percent A 0.4 % (0-0.5); Lymphocytes Absolute Auto 1.97 K/mm3 (0.9-3.2); Mean Corpuscular HGB Conc 31.1 g/dl (32-36); Mean Corpuscular Hemoglobin 26.8 pg (26-34); Mean Platelet Volume 9.4 fl (7.4-10.4); Monocytes Absolute Auto 0.4 K/mm3 (0.1-0.6); Monocytes Percent Auto 7.1 % (2.6-8.5); Neutrophils Absolute Auto 2.9 K/mm3 (1.3-6.7); Neutrophils Percent Auto 53.6 % (45.5-73.1); Platelet Count Result 323 k/mm3 (150-375); Red Blood Count 4.37 M/mm3 (4.2-5.4); Red Cell Distribution Width 13.5 % (11.5-14.5); White Blood Count 5.3 K/mm3 (4.5-10.0)
[2020-11-19 13:29] LABS: Creatinine Urine 125.7 mg/dL; Total Protein Urine Random 13 mg/dL
[2020-11-19 13:30] VITALS: BP 125/81; PULSE 74
[2020-11-19 13:44] LABS: Alanine Aminotransferase 22 U/L (4-35); Alkaline Phosphatase 79 U/L (38-126); Anion Gap 6 mmol/L (8-16); Aspartate Amino Transferase 28 U/L (14-36); Bilirubin,Total 0.2 mg/dL (0.2-1.3); Blood Urea Nitrogen 12 mg/dL (7-17); Calcium 9.1 mg/dL (8.4-10.2); Carbon Dioxide 28 mmol/L (22-30); Chloride 105 mmol/L (98-107); Estimated Glomerular Filt Rate > 60; Glucose 68 mg/dL (65-105); Potassium 4.1 mmol/L (3.4-5.0); Sodium 139 mmol/L (137-145); Uric Acid 5.7 mg/dL (2.5-7.5)
[2020-11-19 13:45] VITALS: BP 130/86; PULSE 74
[2020-11-19 13:52] LABS: Add Urine Microscopic? YES; Appearance Urine Clear (Clear); Bacteria Urine Trace /hpf; Bilirubin Urine Negative (Negative); Blood Urine 2+ (Negative); Color Urine Yellow (Yellow); Glucose Urine UA Negative (Negative); Ketones Urine Negative (Negative); Leukocyte Esterase Ur 1+ LEU/UL (NEGATIVE); Mucus Urine Rare /lpf; Nitrate Urine Negative (Negative); Protein Urine 1+ mg/dL (Negative); Specific Grav Ur 1.016 (1.001-1.035); Squamous Epithelial Cell Urine Occasional /hpf (Few); Urobilinogen Urine Negative mg/dL (<2.0)
--- NOTE | 2020-11-19 13:56 | PC.NURSE ---
Dr Weir notified of BP's and lab results, ok to dc home. follow up in office next week.
== END 2020-11-19 13:37 | disposition home or self-care (01) ==
LOC: ANHOBOP 12:31 → ANHOBPP 12:32
PROVIDERS: PCP Family Medicine; Visit Provider Obstetrics & Gynecology
DX: O13.9 Gestational [pregnancy-induced] hypertension without significant proteinuria, unspecified trimester (principal); Z3A.00 Weeks of gestation of pregnancy not specified
CPT/HCPCS: 36415; 80053; 81001; 82570; 84156; 84550; 85025; 87077; 87086; 87088; 87186; 99199

== ENCOUNTER 2020-11-24 12:04 | Observation (INO) | payer BC, SELFPAY ==
[2020-11-24] VITALS (11 sets, daily range): BP systolic 123–143; BP diastolic 74–90; PULSE 63–79; RESP 18; TEMP 36.1–36.7; O2SAT 97–100; BMI 26.1
[2020-11-24 12:53] LABS: Basophils Percent Auto 0.7 % (0.2-1.2); Eosinophils Percent Auto 0.7 % (0-4.4); Hematocrit 37.8 % (37.0-47.0); Hemoglobin 12.2 g/dL (12.0-15.0); Immature Granulocyte Absolute 0.01 K/mm3 (0.00-0.031); Immature Granulocyte Percent A 0.2 % (0-0.5); Lymphocytes Absolute Auto 1.76 K/mm3 (0.9-3.2); Lymphocytes Percent Auto 30.6 % (18.3-44.2); Mean Corpuscular HGB Conc 32.3 g/dl (32-36); Mean Corpuscular Hemoglobin 26.6 pg (26-34); Mean Corpuscular Volume 82.5 fl (80-100); Mean Platelet Volume 9.6 fl (7.4-10.4); Monocytes Absolute Auto 0.4 K/mm3 (0.1-0.6); Monocytes Percent Auto 6.3 % (2.6-8.5); Neutrophils Absolute Auto 3.6 K/mm3 (1.3-6.7); Neutrophils Percent Auto 61.5 % (45.5-73.1); Platelet Count Result 307 k/mm3 (150-375); Red Blood Count 4.58 M/mm3 (4.2-5.4); Red Cell Distribution Width 13.4 % (11.5-14.5); White Blood Count 5.8 K/mm3 (4.5-10.0)
[2020-11-24 13:03] LABS: Alanine Aminotransferase 23 U/L (4-35); Albumin Level 4.2 g/dL (3.5-5.1); Alkaline Phosphatase 85 U/L (38-126); Anion Gap 12 mmol/L (8-16); Aspartate Amino Transferase 25 U/L (14-36); Bilirubin,Total 0.3 mg/dL (0.2-1.3); Blood Urea Nitrogen 16 mg/dL (7-17); Calcium 9.8 mg/dL (8.4-10.2); Carbon Dioxide 25 mmol/L (22-30); Chloride 104 mmol/L (98-107); Estimated Glomerular Filt Rate > 60; Glucose 84 mg/dL (65-105); Potassium 4.2 mmol/L (3.4-5.0); Sodium 141 mmol/L (137-145); Uric Acid 6.2 mg/dL (2.5-7.5)
[2020-11-24] MEDS: LACTATED RINGERS 1,000 ML 75 ML IV CONT (13:31)
[2020-11-24] MEDS: MAGNESIUM SULF 4 GM/WATER100ML 4 GM/100 ML BAG IVPB (13:31)
[2020-11-24] MEDS: ACETAMINOPHEN 500 MG TABLET 1000 MG PO (19:46)
--- NOTE | 2020-11-24 20:47 | PC.NURSE ---
1830 - pt rating her headache pain of 8/10, denies pain medication at this time. Pt states she would like to eat her dinner and increase her water intake to see if that helps first.
--- NOTE | 2020-11-24 20:51 | PC.NURSE ---
0 - pt rating her headache a 6/10, requesting Tylenol. Pt denies dizziness, blurred vision, epigastric pain, n/v.
[2020-11-25] VITALS (11 sets, daily range): BP systolic 117–150; BP diastolic 81–92; PULSE 63–85; RESP 15–18; TEMP 36.2–36.7; O2SAT 99–100
[2020-11-25] MEDS: ACETAMINOPHEN 500 MG TABLET 1000 MG PO ×2 (00:31→14:00)
[2020-11-25] MEDS: MAGNESIUM SULF 20GM/WATER500ML 500 ML 50 MG IV CONT (00:44)
[2020-11-25] MEDS: LACTATED RINGERS 1,000 ML 75 ML IV CONT (00:45)
--- NOTE | 2020-11-25 11:24 | P.PNOB_ITS ---
OB - PN: Subj Subjective Date/time seen: 11/25/20 11:24 This patient is a 40-year-old female who is 5 weeks from a uncomplicated . She presented with elevated blood pressures. She was admitted for observation. Magnesium sulfate has been administered for the past week to hours. We will discontinue magnesium sulfate. She was given 200 labetalol. We will observe and possibly discharged in the next 2 hours if blood pressure is stable. Will continue labetalol twice a day. She was instructed to follow up next week Sunday, 5 days, she is given precautions for preeclampsia and elevated blood pressures. She and check her blood pressure at home. OB - PN: Obj Data Labs CBC & Chem 7: 11/24/20 12:43 11/24/20 12:43 Labs: Laboratory Results - last 24 hr 11/24/20 11/24/20 12:43 12:43 WBC 5.8 RBC 4.58 Hgb 12.2 Hct 37.8 MCV 82.5 MCH 26.6 MCHC 32.3 RDW 13.4 Plt Count 307 MPV 9.6 Immature Gran % (Auto) 0.2 Neut % (Auto) 61.5 Lymph % (Auto) 30.6 [place] % (Auto) 6.3 Eos % (Auto) 0.7 Baso % (Auto) 0.7 Lymph # (Auto) 1.76 [place] # (Auto) 0.4 Eos # (Auto) 0.0 Baso # (Auto) 0.0 Abs Immat Gran (auto) 0.01 Absolute Neuts (auto) 3.6 Absolute Nucleated RBC 0.0 Nucleated RBC % 0.0 Sodium 141 Potassium 4.2 Chloride 104 Carbon Dioxide 25 Anion Gap 12 BUN 16 Creatinine 1.00 Estim Creat Clear Calc Not Reportable Estimated GFR > 60 Glucose 84 Uric Acid 6.2 Calcium 9.8 Total Bilirubin 0.3 AST 25 ALT 23 Alkaline Phosphatase 85 Total Protein 7.0 Albumin 4.2 OB - PN A/P Time Spent With Patient Time: Total time spent is greater than 50% in coordination of care (as documented) at patient's floor/unit and/or counseling patient:
[2020-11-25] MEDS: LABETALOL HCL 100 MG TABLET 200 MG PO (11:38)
--- NOTE | 2020-11-25 14:10 | PC.NURSE ---
1120- on unit, talked with pt and her . Ordered labetalol 200mg q12hr and order to stop magnesium now. Pt will be discharge later today if bp's stay WNL.
--- NOTE | 2020-11-25 14:13 | PC.NURSE ---
1315- on unit, informed pt is requesting to be discharge home. Order received if next bp is WNL pt may be discharged with instruction to take labetalol q12hr and check bp's at home.
== END 2020-11-25 14:10 | disposition home or self-care (01) ==
PROVIDERS: Admitting Provider Obstetrics & Gynecology; PCP Family Medicine; Visit Provider Obstetrics & Gynecology
DX: O16.5 Unspecified maternal hypertension, complicating the puerperium (principal)
CPT/HCPCS: 36415; 80053; 84550; 85025; 96361; 96374; 96376; A9270; G0378; G0379; J3475; J7120

== ENCOUNTER 2020-11-26 20:15 | Observation (INO) | payer BC, SELFPAY ==
[2020-11-26 21:16] VITALS: BP 164/88; PULSE 57
[2020-11-26 21:31] VITALS: BP 166/96; PULSE 59
[2020-11-26] MEDS: NIFEdipine 30 MG TAB.ER.24 60 MG PO (21:34)
[2020-11-26 21:46] VITALS: BP 153/90; PULSE 60
[2020-11-26 22:01] VITALS: BP 150/87; PULSE 56
[2020-11-26 22:16] VITALS: BP 131/78; PULSE 64
[2020-11-26 22:30] LABS: Basophils Percent Auto 0.6 % (0.2-1.2); Eosinophils Absolute Auto 0.1 K/mm3 (0-0.3); Eosinophils Percent Auto 1.5 % (0-4.4); Hematocrit 34.9 % (37.0-47.0); Hemoglobin 10.9 g/dL (12.0-15.0); Lymphocytes Absolute Auto 2.52 K/mm3 (0.9-3.2); Lymphocytes Percent Auto 40.6 % (18.3-44.2); Mean Corpuscular HGB Conc 31.2 g/dl (32-36); Mean Corpuscular Hemoglobin 26.7 pg (26-34); Mean Corpuscular Volume 85.5 fl (80-100); Mean Platelet Volume 9.5 fl (7.4-10.4); Monocytes Absolute Auto 0.4 K/mm3 (0.1-0.6); Monocytes Percent Auto 6.8 % (2.6-8.5); Neutrophils Absolute Auto 3.1 K/mm3 (1.3-6.7); Neutrophils Percent Auto 50.5 % (45.5-73.1); Platelet Count Result 265 k/mm3 (150-375); Red Blood Count 4.08 M/mm3 (4.2-5.4); Red Cell Distribution Width 13.7 % (11.5-14.5); White Blood Count 6.2 K/mm3 (4.5-10.0)
[2020-11-26 22:42] LABS: Alanine Aminotransferase 18 U/L (4-35); Albumin Level 3.8 g/dL (3.5-5.1); Alkaline Phosphatase 78 U/L (38-126); Anion Gap 8 mmol/L (8-16); Aspartate Amino Transferase 23 U/L (14-36); Bilirubin,Total 0.2 mg/dL (0.2-1.3); Blood Urea Nitrogen 14 mg/dL (7-17); Calcium 9.1 mg/dL (8.4-10.2); Carbon Dioxide 25 mmol/L (22-30); Chloride 107 mmol/L (98-107); Estimated Glomerular Filt Rate > 60; Glucose 96 mg/dL (65-105); Potassium 3.9 mmol/L (3.4-5.0); Sodium 140 mmol/L (137-145); Uric Acid 5.2 mg/dL (2.5-7.5)
[2020-11-26 23:01] VITALS: BP 138/88; PULSE 70
[2020-11-27] VITALS (16 sets, daily range): BP systolic 93–124; BP diastolic 60–80; PULSE 66–86; RESP 16–18; TEMP 36.6–36.7; BMI 26.9
[2020-11-27] MEDS: LABETALOL HCL 100 MG TABLET 300 MG PO (00:25)
[2020-11-27] MEDS: ACETAMINOPHEN 500 MG TABLET 1000 MG PO (05:52)
--- NOTE | 2020-11-27 09:32 | PM.IMHP ---
H&P: HPI History of Present Illness Date/Time: 11/27/20 09:32 Chief Complaint: Pt admitted for management of blood pressures pp, pt was admitted earlier this week and was on magnesium sulfate x 24 hours. pt now has mild jimenes with bps that are normotensive. denies visual changes and epigastric pain. baby in room and Review of Systems Review of Systems: All systems reviewed & are unremarkable except as noted in HPI and below PMFSH Past Medical History Medical History (Updated 11/27/20 @ 10:20 by Joelle Simms CNM) Angioedema Chronic anemia Hyperthyroidism Vitamin D deficiency, unspecified Surgical History Surgical History No history of previous surgery Family History Family History Mother Family history of malignant neoplasm of breast in first degree relative, Onset Age: 49 Social History Social History (Updated 04/12/20 @ 14:21 by Cinthya Marcus) Social History: Smoking status: Never smoker Second hand tobacco smoke exposure: No Alcohol intake: never Substance use: never Substance use type: does not use Gender identity (if verbalized by the patient): Female Spiritual care concerns: No Meds Home Medications and Allergies Home Medications Medication Instructions Recorded Confirmed Type prenat.vits,agustin,xid-vqgn-crgpd 1 tablet PO DAILY 04/12/20 11/27/20 History labetalol 300 mg PO Q12H 11/27/20 11/27/20 History nifedipine 60 mg PO BID 11/27/20 11/27/20 History Allergies Allergy/AdvReac Type Severity Reaction Status Date / Time oseltamivir [From Tamiflu] Allergy Severe angioedema Verified 10/22/20 07:47 Vital Signs Vital Signs - 24 hr 11/26/20 21:16 11/26/20 21:31 11/26/20 21:46 Temperature Pulse Rate 57 L 59 L 60 Respiratory Rate Blood Pressure 164/88 H 166/96 H 153/90 H 11/26/20 22:01 11/26/20 22:16 11/26/20 23:01 Temperature Pulse Rate 56 L 64 70 Respiratory Rate Blood Pressure 150/87 H 131/78 138/88 11/27/20 00:01 11/27/20 00:12 11/27/20 00:25 Temperature 36.6 C Pulse Rate 76 70 70 Respiratory Rate 18 Blood Pressure 122/69 124/80 11/27/20 01:01 11/27/20 02:01 11/27/20 03:01 Temperature Pulse Rate 72 78 78 Respiratory Rate Blood Pressure 116/76 111/74 102/67 11/27/20 04:01 11/27/20 05:00 11/27/20 06:01 Temperature Pulse Rate 70 85 66 Respiratory Rate Blood Pressure 102/61 105/73 100/61 11/27/20 07:01 11/27/20 08:00 11/27/20 09:01 Temperature Pulse Rate 78 75 78 Respiratory Rate Blood Pressure 93/60 L 104/77 110/77 Exam Const: General: cooperative, healthy appearing and comfortable Extrem: Right lower extremity: normal to inspection Left lower extremity: normal to inspection Psych: Affect: normal affect Attitude: cooperative Judgement: Good judgement present (Psych) H&P: Results Labs Labs: Short CBC 11/26/20 Range/Units 22:24 WBC 6.2 (4.5-10.0) K/mm3 Hgb 10.9 L (12.0-15.0) g/dL Hct 34.9 L (37.0-47.0) % Plt Count 265 (150-375) k/mm3 BMP 11/26/20 22:24 Sodium 140 Potassium 3.9 Chloride 107 Carbon Dioxide 25 BUN 14 Creatinine 0.90 Glucose 96 Calcium 9.1 Liver Function 11/26/20 Range/Units 22:24 Total Bilirubin 0.2 (0.2-1.3) mg/dL AST 23 (14-36) U/L ALT 18 (4-35) U/L Alkaline Phosphatase 78 (38-126) U/L Albumin 3.8 (3.5-5.1) g/dL Assessment and Plan Assessment and plan (1) hypertension: Code(s): O16.5 - Unspecified maternal hypertension, complicating the puerperium Status: Acute Additional Plan 1. 5 weeks 2. HTN continue to monitor symptoms and bp continue current medications discussed with dr cross
--- NOTE | 2020-11-27 09:35 | PC.NURSE ---
Donna Simms CNM in department and updated on maternal assessment, including vital signs. Plan of care discussed and orders received.
[2020-11-27] MEDS: IBUPROFEN 600 MG TABLET PO (10:22)
--- NOTE | 2020-11-27 12:33 | PC.NURSE ---
Updated Dr. Proctor on maternal assessment, including BP's. Order given to discontinue labetalol. Discharge orders have been received. Order given to discharge patient to home, patient to take nifedipine (procardia XL) 120mg daily at 2130. Patient to no longer take labetalol at home. Dr. Proctor wants patient instructed to continue to monitor BP at home, if patient BP >= 160/[address] to notify Dr[address] Proctor. Patient to follow-up with Dr. Proctor in office on Sunday.
--- NOTE | 2020-11-27 13:01 | PC.NURSE ---
Discharge instructions reviewed with patient. Patient educated on HIP precautions and provided education materials. Patient instructed to follow-up in Dr. Jackson office on Sunday11/30/2020. Patient instructed to stop labetalol and start taking 120mg Procardia daily at 2130. Patient also instructed to continue to monitor BP at home and notify Dr. Proctor of BP >= 160/110. Patient states understanding of discharge orders and precautions.
== END 2020-11-27 13:42 | disposition home or self-care (01) ==
PROVIDERS: Admitting Provider Obstetrics & Gynecology; PCP Family Medicine; Visit Provider Obstetrics & Gynecology
DX: O16.5 Unspecified maternal hypertension, complicating the puerperium (principal); O99.285 Endocrine, nutritional and metabolic diseases complicating the puerperium; E05.90 Thyrotoxicosis, unspecified without thyrotoxic crisis or storm; E55.9 Vitamin D deficiency, unspecified; O90.81 Anemia of the puerperium; D64.89 Other specified anemias
CPT/HCPCS: 36415; 80053; 84550; 85025; A9270; G0378; G0379

== ENCOUNTER 2021-06-16 15:29 | Emergency (ER) | payer BC, SELFPAY ==
--- NOTE | ~2021-06-16 | CT_ITS ---
EXAMINATION: CT brain wo con DATE: 06/16/2021 16:56 INDICATION: Headache, blurred vision. Hypertension. TECHNIQUE: Computed tomography (CT) of the head was performed without intravenous contrast. The mA wa s adjusted according to patient size. Iterative reconstruction technique was employed. Exam dose: 60 5.33 mGy-cm total exam DLP. COMPARISON: None FINDINGS: No fracture or bone destruction of the cranial vault. Included mastoid air cells and parana theodore sinuses are normally developed and aerated. Orbital contents appear normal. No intracranial mass lesion or hemorrhage or cerebrovascular accident. Normal ventricular size. No mi dline shift or mass effect t. Normal espinoza-white matter differentiation. No subdural or epidural hemat nuvia. IMPRESSION: Negative Reviewed, dictated and finalized at [facility] Reviewed, dictated and finalized at [facility] IMPRESSION: Negative
[2021-06-16 15:43] VITALS: BP 147/97; PULSE 80; RESP 14; TEMP 36.7; O2SAT 100
[2021-06-16 16:00] VITALS: BP 136/100; PULSE 78; RESP 18; O2SAT 100
[2021-06-16 16:12] VITALS: BP 139/100
--- NOTE | 2021-06-16 16:24 | ECG_ITS ---
Measurements Intervals [place] Rate: 66 P: 62 MA: 171 QRS: 11 QRSD: 83 T: 20 QT: 372 QTc: 390 Interpretive Statements SINUS RHYTHM NORMAL ECG Electronically Signed On 06-18-2021 7:49:33 INSURANCE BILLING CLERK by Vega Parrish D.O.
[2021-06-16 16:31] VITALS: BP 134/89; PULSE 81; RESP 17; O2SAT 100
--- NOTE | 2021-06-16 16:41 | ED.GENADULT ---
HPI - General Adult General Chief complaint: Recheck/Abnormal Lab/Rx Stated complaint: high bp Time Seen by Provider: 06/16/21 16:15 History of Present Illness HPI narrative: 40-year-old female with history of high blood pressure presents to the emergency department for evaluation of elevated blood pressure today. Patient states that over the last few days she has had some right-sided neck pain. Patient states over the last month she has had some blurred vision. Patient states that she has been taking Procardia and takes it at 11 PM at night. Patient states her typical blood pressure runs in the 120/80 range. Patient states that she had her blood pressure checked at home and it was 140/100. Patient states that she did have some mild headache with this. Patient states that she did lay down and her headache did improve. Patient denies any chest pain or shortness of breath. Patient denies any nausea vomiting or diarrhea. Related Data Allergies Allergy/AdvReac Type Severity Reaction Status Date / Time oseltamivir [From Tamiflu] Allergy Severe angioedema Verified 03/04/21 16:23 Review of Systems Review of Systems: CONSTITUTIONAL: Denies fever, chills, or sweats. EYES: Intermittent blurred vision for the past month. No acute change today ENT: Denies rhinorrhea, congestion, sore throat, or otalgia. CARDIOVASCULAR: Denies chest pain, palpitations, or edema. RESPIRATORY: Denies cough or dyspnea. GASTROINTESTINAL: Denies abdominal pain, nausea, vomiting, or diarrhea. GENITOURINARY: Denies dysuria or hematuria. SKIN: Denies rash or itching. MUSCULOSKELETAL: Denies back pain, joint pain, or myalgia. NEUROLOGIC: Intermittent headache All systems reviewed & are unremarkable except as noted in HPI and below PMFSH Past Medical History Medical History (Updated 06/17/21 @ 00:07 by Mitch Thao MD) Angioedema Chronic anemia Hyperthyroidism Vitamin D deficiency, unspecified Surgical History Surgical History No history of previous surgery Family History Family History Mother Family history of malignant neoplasm of breast in first degree relative, Onset Age: 49 Social History Social History (Updated 03/04/21 @ 16:24 by Cinthya Marcus) Social History: Smoking status: Never smoker Second hand tobacco smoke exposure: No Alcohol intake: never Substance use: never Substance use type: does not use Gender identity (if verbalized by the patient): Female Sexual Orientation (if Verbalized by the Patient): Straight or Heterosexual Spiritual care concerns: No Exam Narrative: APPEARANCE: Well appearing, no pain, no distress, well-nourished. HEAD: normocephalic, atraumatic. EYES: PERRLA/EOMI, conjunctivae clear. NOSE: Normal no drainage NECK: Supple. No adenopathy, no masses. RESPIRATORY: Airway patent, respirations nonlabored. Clear to auscultation bilaterally, no rales, rhonchi, wheezing. CARDIOVASCULAR: Regular rate and rhythm without murmurs rubs or gallops. ABDOMINAL: Soft, nontender, nondistended, normal bowel sounds MUSCULOSKELETAL: Moves all extremities. Strength/ROM intact, No edema, No calf tenderness. NEURO: Alert. Cranial nerves II through XII intact. SKIN: Warm, dry. Normal Color Course Reevaluation(s) Reevaluation #1: Patient does feel improved. Patient denies any complaints at this time. Patient was updated on the results of her imaging and labs. Patient was encouraged to have close follow-up with her primary care physician. All questions concerns were addressed. Patient was in no distress at time of discharge from emergency room Vital Signs Vital signs: Vital Signs Temperature 98.0 F 06/16/21 15:43 Pulse Rate 80 06/16/21 15:43 Respiratory Rate 14 06/16/21 15:43 Blood Pressure 147/97 H 06/16/21 15:43 Pulse Oximetry 100 06/16/21 15:43 Temperature 98.0 F 06/16/21 15:
[2021-06-16 16:50] LABS: Basophils Percent Auto 0.5 % (0.2-1.2); Eosinophils Absolute Auto 0.1 K/mm3 (0-0.3); Eosinophils Percent Auto 0.9 % (0-4.4); Hematocrit 38.2 % (37.0-47.0); Hemoglobin 12.1 g/dL (12.0-15.0); Immature Granulocyte Absolute 0.01 K/mm3 (0.00-0.031); Immature Granulocyte Percent A 0.2 % (0-0.5); Lymphocytes Absolute Auto 2.07 K/mm3 (0.9-3.2); Lymphocytes Percent Auto 37.6 % (18.3-44.2); Mean Corpuscular HGB Conc 31.7 g/dl (32-36); Mean Corpuscular Hemoglobin 26.5 pg (26-34); Mean Corpuscular Volume 83.6 fl (80-100); Mean Platelet Volume 9.1 fl (7.4-10.4); Monocytes Absolute Auto 0.3 K/mm3 (0.1-0.6); Monocytes Percent Auto 6.2 % (2.6-8.5); Neutrophils Percent Auto 54.6 % (45.5-73.1); Platelet Count Result 316 k/mm3 (150-375); Red Blood Count 4.57 M/mm3 (4.2-5.4); Red Cell Distribution Width 13.6 % (11.5-14.5); White Blood Count 5.5 K/mm3 (4.5-10.0)
[2021-06-16 17:01] LABS: Alanine Aminotransferase 20 U/L (4-35); Albumin Level 4.4 g/dL (3.5-5.1); Alkaline Phosphatase 87 U/L (38-126); Anion Gap 5 mmol/L (8-16); Aspartate Amino Transferase 26 U/L (14-36); Bilirubin,Total 0.3 mg/dL (0.2-1.3); Blood Urea Nitrogen 12 mg/dL (7-17); Calcium 9.8 mg/dL (8.4-10.2); Carbon Dioxide 30 mmol/L (22-30); Chloride 103 mmol/L (98-107); Estimated CRCL calculation 92 ml/min; Estimated Glomerular Filt Rate > 60; Glucose 99 mg/dL (65-110); Potassium 4.4 mmol/L (3.4-5.0); Sodium 138 mmol/L (137-145)
[2021-06-16 17:13] LABS: NT Pro B Type Natriuretic Pept 65 pg/mL (5-100); Troponin I < 0.012 ng/mL (0.000-0.034)
[2021-06-16 18:07] LABS: Add Urine Microscopic? NO; Appearance Urine Clear (Clear); Bilirubin Urine Negative (Negative); Blood Urine Negative (Negative); Color Urine Straw (Yellow); Glucose Urine UA Negative (Negative); Ketones Urine Negative (Negative); Leukocyte Esterase Ur Negative LEU/UL (Negative); Nitrate Urine Negative (Negative); Protein Urine Negative (Negative); Specific Grav Ur 1.005 (1.001-1.035); Urobilinogen Urine Negative mg/dL (<2.0)
[2021-06-16 19:15] VITALS: BP 123/87; PULSE 62; RESP 20; O2SAT 100
[2021-06-16 19:57] LABS: Troponin I < 0.012 ng/mL (0.000-0.034)
[2021-06-16 20:41] VITALS: BP 128/88; PULSE 69; RESP 15; O2SAT 100
== END 2021-06-16 20:42 | disposition home or self-care (01) ==
PROVIDERS: Emergency Provider Emergency Medicine; PCP Family Medicine
DX: I10 Essential (primary) hypertension (principal); R51.9 Headache, unspecified; D64.9 Anemia, unspecified; E05.90 Thyrotoxicosis, unspecified without thyrotoxic crisis or storm
CPT/HCPCS: 36415; 70450; 80053; 81003; 81025; 83880; 84484; 85025; 93005; 99284